=== PATIENT | male | born 1995 | race Hispanic/Latino ===

== ENCOUNTER 2023-02-01 14:14 | Emergency (ER) | payer SELFPAY ==
--- NOTE | ~2023-02-01 | CT_ITS ---
EXAMINATION: CT lumbar spine wo con DATE: 02/01/2023 15:23 INDICATION: Status post fall. Calcaneal fracture. TECHNIQUE: Computed tomography (CT) of the lumbar spine was performed without intravenous contrast. T he dose-length product was 916.17 mGy-cm. Automated exposure control and iterative reconstruction fiordaliza hnique were employed. COMPARISON: Lumbar spine series dated 02/01/2023 FINDINGS: There is mild levocurvature of the lumbar spine. There is disc narrowing at L4-5 and L5-S1. No acute fracture or traumatic malalignment. No acute abnormality of the sacrum. Mild degenerative c hanges of the sacroiliac joints. No soft tissue abnormality. IMPRESSION: 1. No acute fracture. Reviewed, dictated and finalized at location A. IMPRESSION: 1. No acute fracture.
--- NOTE | ~2023-02-01 | XR_ITS ---
XR lumbar spine 2-3V 02/01/2023 15:17 Indication: Back pain Procedure: 3 views lumbar spine Comparison: No prior studies for comparison. Findings: Mild levocurvature of the lumbar spine. Vertebral body heights are maintained. There is dis c narrowing at L4-5 and L5-S1. No evidence for spondylolisthesis. No acute fracture or traumatic abdulkadir lignment. Pedicles intact. Sacral foramen are symmetric. Impression: 1: Mild lumbar spondylosis. 2: No acute fracture. Reviewed, dictated and finalized at location A. Impression: 1: Mild lumbar spondylosis. 2: No acute fracture.
--- NOTE | ~2023-02-01 | XR_ITS ---
XR ankle LT min 3V, XR foot LT min 3V 02/01/2023 14:59 (accession [id number]), 02/01/2023 14:58 (accession [id number]) Indication: Left ankle and foot pain Procedure: 4 views left ankle and 4 views left foot Comparison: No prior studies for comparison. Findings: There is a comminuted displaced calcaneal fracture without definite involvement of the subt alar joint. Ankle mortise intact. No other fracture. Mild soft tissue swelling. No foreign bodies. Impression: 1: Comminuted displaced calcaneal fracture without definite involvement of the subtalar joint. Reviewed, dictated and finalized at location A. Impression: 1: Comminuted displaced calcaneal fracture without definite involvement of the subtalar joint. Impression: 1: Comminuted displaced calcaneal fracture without definite involvement of the subtalar joint.
--- NOTE | ~2023-02-01 | XR_ITS ---
XR tibia fibula LT 2V 02/01/2023 14:59 INDICATION: Left leg pain PROCEDURE: 2 views left tibia/fibula COMPARISON: No prior studies for comparison. FINDINGS: Fracture, dislocation or subluxation is not identified. The soft tissues appear within norm al limits. No foreign bodies are identified. IMPRESSION: 1: NO ACUTE BONE OR JOINT ABNORMALITY IDENTIFIED. Reviewed, dictated and finalized at location A.
[2023-02-01 14:16] VITALS: BP 143/83; PULSE 58; RESP 16; TEMP 37.2; O2SAT 100
--- NOTE | 2023-02-01 14:45 | ED.GENADULT ---
HPI - General Adult General Chief complaint: Trauma Stated complaint: fell from ladder Time Seen by Provider: 02/01/23 14:27 History of Present Illness HPI narrative: 27-year-old male present emergency department for evaluation after having a fall from a ladder. Patient suspects the height was approximately 12 to 20 feet. 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 Patient states he fell to the ground, landed on his feet but then did fall to the ground. Patient states he did have some left ankle pain and leg pain.. Patient states he did have some lightheaded and dizziness after trying to take off his boot and had intense pain. Patient states he did feel better once he got into his car and was sitting on the air conditioning. Related Data Allergies Allergy/AdvReac Type Severity Reaction Status Date / Time No Known Allergies Allergy Verified 02/01/23 14:27 Review of Systems Review of Systems: All systems reviewed & are unremarkable except as noted in HPI and below Exam Narrative: APPEARANCE: Well appearing, no pain, no distress, well-nourished. HEAD: normocephalic, atraumatic. EYES: PERRLA/EOMI, conjunctivae clear. NOSE: Normal no drainage EARS:TMS clear with good light reflex. THROAT: Pharynx clear, no exudate. NECK: Supple. No adenopathy, no masses. RESPIRATORY: Airway patent, respirations nonlabored. Clear to auscultation bilaterally, no rales, rhonchi, wheezing. CARDIOVASCULAR: Regular rate and rhythm without murmurs rubs or gallops. ABDOMINAL: Soft, nontender, nondistended, normal bowel sounds MUSCULOSKELETAL: Left tib-fib ankle and foot tenderness. Neurovascular intact. No other pain or injury NEURO: Alert. Cranial nerves II through XII intact. Grossly intact SKIN: Warm, dry. Normal Color Course Course Emergency Course: 27-year-old male presented ED for evaluation of left tib-fib ankle and foot pain after having a fall from 12 to 20 feet. X-ray of tib-fib was negative foot x-ray was negative other than the calcaneal fracture. Case was discussed with orthopedics and patient will have close follow-up with Dr. Munguia. Patient was placed in a short leg splint with a well-padded heel. Patient was able to ambulate with crutches. X-ray of lumbar and CT lumbar spine were ordered to rule out associated fractures and these were negative. On reevaluation patient continues to deny any other pain or injury other than his left lower leg. Vital Signs Vital signs: Vital Signs Temperature 98.9 F 02/01/23 14:16 Pulse Rate 58 L 02/01/23 14:16 Respiratory Rate 16 02/01/23 14:16 Blood Pressure 143/83 H 02/01/23 14:16 Pulse Oximetry 100 02/01/23 14:16 Oxygen Delivery Room Air 02/01/23 14:16 Temperature 98.9 F 02/01/23 14:16 Pulse Rate 84 02/01/23 17:38 Respiratory Rate 18 02/01/23 17:38 Blood Pressure 143/83 H 02/01/23 14:16 Pulse Oximetry 98 02/01/23 17:38 Oxygen Delivery Room Air 02/01/23 14:21 Procedures Orthopedic Splinting/Casting Injury #1: Splinting/Casting Time: 16:33 Side: left Lower Extremity Injury Location: lower leg Lower Extremity Immobilizer: posterior splint Pre-Procedure Neuro Vascular Exam: normal Post-Procedure Neuro Vascular Exam: normal Other Orthopedic Equipment: crutches Medical Decision Making Differential Diagnosis Differential Diagnosis: Left tib-fib injury, left ankle injury left foot injury, lumbar spine fracture Vital Signs Vital Signs: Vital Signs Temperature 98.9 F 02/01/23 14:16 Pulse Rate 58 L 02/01/23 14:16 Respiratory Rate 16 02/01/23 14:16 Blood Pressure 143/83 H 02/01/23 14:16 Pulse Oximetry 100 02/01/23 14:16 Oxygen Delivery Room Air 02/01/23 14:16 Temperature 98.9 F 02/01/23 14:16 Pulse Rate 84 02/01/23 17:38 Respiratory Rate 18 02/01/23 17:38 Blood Pressure 143/83 H 02/01/23 14:16 Pulse Oximetry 98 02/01/23 17:38 Oxygen Delivery
[2023-02-01] MEDS: SODIUM CHLORIDE 0.9% IV 1,000 ML 999 ML IV CONT (14:48)
[2023-02-01] MEDS: HYDROmorphone HCL INJ (*CRX) 1 MG/ML SYR 0.5 MG IV PUSH (14:48)
[2023-02-01] MEDS: HYDROcodone/acetaminophen (*CRX) 5-325 MG TABLET 1 TAB PO (16:34)
[2023-02-01 17:38] VITALS: PULSE 84; RESP 18; O2SAT 98
== END 2023-02-01 17:39 | disposition home or self-care (01) ==
LOC: ANHED 16:44
PROVIDERS: Emergency Provider Emergency Medicine
DX: S92.002A Unspecified fracture of left calcaneus, initial encounter for closed fracture (principal); W11.XXXA Fall on and from ladder, initial encounter
CPT/HCPCS: 29515; 72100; 72131; 73590; 73610; 73630; 96361; 96374; 99284; A9270; J1170; J7030